=== PATIENT | female | born 1975 | race Caucasian/White ===

== ENCOUNTER 2016-11-20 09:12 | Outpatient (CLI) | payer OTHER, BC ==
[~2016-11-20] VITALS: Ht 161.3 cm; Wt 66.9 kg
[2016-11-20] MEDS ORDERED: METH36TA4 PO (09:25)
[2016-11-20 09:28] VITALS: BP 124/88
== END 2016-11-20 09:44 | disposition home or self-care (01) ==
LOC: PREOP 09:12
PROVIDERS: ATTEND Podiatrist Foot & Ankle Surgery
DX: Z01.818 Encounter for other preprocedural examination (principal); Z11.2 Encounter for screening for other bacterial diseases; M20.11 Hallux valgus (acquired), right foot; M20.41 Other hammer toe(s) (acquired), right foot; M21.621 Bunionette of right foot
CPT/HCPCS: 87081

== ENCOUNTER → 2016-11-27 | Day surgery (SDC) | payer BC, OTHER ==
--- NOTE | 2016-11-21 07:25 | History & Physicial ---
History of Present Illness History of Present Illness Reason for visit/HPI to have foot surgery by Dr. Crump. Surgeries on right toes big toe and small toe Allergic medications denies. Medications now on Concerta 36 mg 2 a day for ADHD. Surgeries partial hysterectomy left one ovary, 3 C-sections, gallbladder, T and A, polyps from nose,wisdom teeth,. Family history denies asthma, TB, diabetes, heart disease, lung disease, cancer Date of Admission patient seen 11/20/16 Time Seen by Provider: 14:00 I consulted on this patient on 11/21/16 07:20 Attending Physician Bhupendra Sue Pa-C Admitting Physician No,Local Physician Consult Allergies and Home Medications Allergies Coded Allergies: No Known Drug Allergies (Unverified , 11/20/16) Home Medications Methylphenidate HCl 36 Mg Tab.er.24, 36 MG PO DAILY, (Reported) Past Towkgzm-Xdzrzh-Ihmegm Hx Patient Social History Employed/Student: employed Seasonal Allergies Seasonal Allergies: No Surgeries HX Surgeries: Yes Surgeries: Gallbladder, Hysterectomy Respiratory Hx Respiratory Disorders: No Cardiovascular Hx Cardiovascular Disorders: No Neurological Hx Neurological Disorders: No Reproductive System : No Hx : 3 Hx Para: 3 Constitutional: no symptoms reported EENTM: no symptoms reported Respiratory: no symptoms reported Cardiovascular: no symptoms reported Gastrointestinal: no symptoms reported Genitourinary: no symptoms reported Physical Exam Vital Signs Capillary Refill : General Appearance: No Apparent Distress, WD/WN Eyes: Bilateral Eye Normal Inspection HEENT: TMs Normal, Normal ENT Inspection, Pharynx Normal Neck: Full Range of Motion, Normal Inspection, Non Tender Respiratory: Chest Non Tender, Lungs Clear, Normal Breath Sounds, No Accessory Muscle Use, No Respiratory Distress Cardiovascular: Regular Rate, Rhythm, No Edema, No Murmur Gastrointestinal: Normal Bowel Sounds, Non Tender, Soft Extremity: Normal Range of Motion Assessment/Plan Assessment and Plan surgery to big toe and small toe right foot Patient okay to have surgery Problems: ISABELA ROJAS DO Nov 21, 2016 07:25
[~2016-11-27] VITALS: Ht 161.3 cm; Wt 66.9 kg
[~2016-11-27] MED LIST: BUPIVACAINE 0.5% 30 ML (SENSORCAINE) VIAL ONE; CATHETER FLUSH 10 ML SYR IV PRN; CEPH500C PO; DEXAMETHASONE PF 10 MG/ML (DECADRON) VIAL ONE; HYDR-3812 PO; HYDROcodone/APAP 5 MG/325 MG (LORTAB) TAB PO PRN; LACTATED RINGERS 1,000 ML IV ONE; LACTATED RINGERS 1,000 ML IV SCH; LIDOCAINE 2% 20 ML (XYLOCAINE) VIAL ONE; MEPERIDINE (DEMEROL) INJ 50 MG/ML ONE; METH36TA4 PO; MIDAZOLAM 2 MG/2 ML (VERSED) VIAL ONE; NS (IVPB) 50 ML ONE; ONDANSETRON 4 MG/2 ML (SDV) Z0FRAN IVP PRN; ONDANSETRON 4 MG/2 ML (SDV) Z0FRAN ONE; SEVOFLURANE (ULTANE) 15 ML INHAL SOLN ONE; ceFAZolin 1 GM/NS 50 ML IVPB IV ONE; ceFAZolin 1,000 MG (ANCEF) VIAL ONE; fentaNYL INJECTION 100 MCG/2 ML AMP ONE; morphine INJ 10 MG/ML 1ML (SYR OR VIAL) IVP PRN; morphine INJ 10 MG/ML 1ML (SYR OR VIAL) ONE; proPOfol 200 MG/20 ML (DIPRIVAN) VIAL IV ONE
[2016-11-27] MEDS: LACTATED RINGERS 1,000 ML IV SCH ×2 (12:30→16:41)
--- NOTE | 2016-11-27 13:14 | Physical Therapy Progress Note ---
Therapy Progress Note PT in for assessment. Patient has stated she is too clumsy for crutches or a walker and prefers a knee scooter for safety with mobility. PT educated patient on use of knee scooter vs. crutches with demonstration and verbal instruction and patient continues to request a knee scooter. PT informed RN of patient preference. 1 visit YUE ELIZABETH PT Nov 27, 2016 13:14
[2016-11-27 13:34] VITALS: BP 120/83
--- NOTE | 2016-11-27 16:00 | Progress Note-Pre Operative ---
Pre-Operative Progress Note H&P Reviewed The H&P was reviewed, patient examined and no changes noted. Date Seen by Provider: Nov 27, 2016 Time Seen by Provider: 15:30 Date H&P Reviewed: Nov 27, 2016 Time H&P Reviewed: 12:30 Pre-Operative Diagnosis: Hallux Valgus, Tailor's bunion, 5th digit Hammertoe, right foot CLEOPATRA SAN DPM Nov 27, 2016 4:00 pm
--- NOTE | 2016-11-27 17:26 | Progress Note-Post Operative ---
Post-Operative Progess Note Surgeon (s)/Retail Project Merchandiser (s) Surgeon CLEOPATRA SAN DPM Retail Project Merchandiser: none Pre-Operative Diagnosis Hallux Valgus, Tailor's bunion, 5th digit Hammertoe, right foot Post-Operative Diagnosis same Procedure & Operative Findings Date of Procedure 11/27/16 Procedure Performed/Findings Neno type Bunionectomy, right Tailor's Bunionectomy, right Arthroplasty right 5th digit Anesthesia Type General Estimated Blood Loss Estimated blood loss (mL): Minimal Specimens/Packing Specimens Removed None CLEOPATRA SAN DPM Nov 27, 2016 5:26 pm
--- NOTE | 2016-11-27 18:37 | Diagnostic Imaging Report ---
EXAMINATION: Right foot dated 11/27/2016. INDICATION: Postoperative evaluation. FINDINGS: Two views of the right foot demonstrate a screw through the distal aspect of first metatarsal. Surrounding subcutaneous area is noted consistent with recent surgery. The osteotomy site is in good anatomic alignment. The remaining osseous structures demonstrate postoperative change at the fifth digit as well with an osteotomy noted. Good alignment is seen at this site as well with surrounding soft tissue irregularity consistent with recent postoperative changes. There are some lucencies seen about the distal fifth metatarsal and metatarsal head. These findings are nonspecific possibly on the basis of recent osteotomy changes as well, correlate clinically. IMPRESSION: Postoperative change involving the distal first metatarsal and the fifth digit as described. Some lucencies seen along the fifth metatarsal head which could be postoperative as well, correlate clinically. Dictated by: Dictated on workstation # [id number]
[2016-11-27 19:30] VITALS: BP 120/83
--- NOTE | 2016-11-29 10:16 | OPERATIVE REPORT ---
PROCEDURE PHYSICIAN: CLEOPATRA SAN DATE OF PROCEDURE: 11/27/2016 SURGEON: Cleopatra San DPM. PREOPERATIVE DIAGNOSIS: 1. Hallux abductovalgus, metatarsal primus varus, right. 2. Bunionette, right. 3. 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 POSTOPERATIVE DIAGNOSES: 1. Hallux abductovalgus, metatarsal primus varus, right. 2. Bunionette, right. 3. 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 PROCEDURE: 1. Modified Neno bunionectomy, right. 2. Sanam's bunionectomy, right. 3. Arthroplasty, right 5th toe. WOUND CLASS: Clean. ANESTHESIA: General. HEMOSTASIS: Pneumatic thigh tourniquet at 250 mmHg. INDICATION: This 41-year-old female presents complaining of a painful right foot. Conservative therapy is met with unsatisfactory results and the patient is agreeable to surgical intervention after risk and complications were discussed at length. No guarantees were extended to the patient and she is willing to proceed. PROCEDURE: The patient was brought back to the operating table, placed in a secure, supine position. Appropriate timeout was performed. A pneumatic thigh tourniquet was placed on lower extremity over several layers of padding and a course of general anesthetic was introduced. The right foot was then prepped and draped in normal sterile manner. Then right foot was then elevated and allowed to exsanguinate after which the tourniquet was inflated to 250 mmHg. Attention was then directed to the dorsal aspect of the right first metatarsophalangeal joint where a 6 cm longitudinal linear incision was created. The incision was deepened in the same plane with great care to identify and retract all vital neurovascular structures. Only the necessary blood vessels were cauterized as encountered. Longitudinal capsulotomy was performed. This exposed the hypertrophic medial eminence to the first metatarsal head, which was resected utilizing a power sagittal saw. Blunt dissection was carried out to the first intermetatarsal space where a lateral release was performed. The conjoined tendon of the adductor hallucis was identified and released. Lateral capsulorrhaphy was also performed, in addition to the release of the fibular sesamoidal ligament. The hallux was then forcibly abducted, releasing any additional fibers holding it in its abnormal position. Attention was redirected to the medial aspect of the first metatarsophalangeal joint where a Chevron type osteotomy was performed. Great care was taken to preserve the sesamoidal apparatus. Capital fragment was translocated laterally and fixated in its corrected position utilizing a 0.062 threaded K wire driven from proximal dorsal to plantar distal across the osteotomy. Excellent bony apposition and fixation was appreciated at this time. The K wire was cut flush with the dorsal aspect of the first metatarsal. The head was further contoured and smoothed with a power sagittal saw and power bur. The wound was flushed with copious amounts of normal saline and closure was then performed in layers. Deep closure was performed in both 3-0 Vicryl, superficial with 4-0 Vicryl, skin closure with 4-0 Vicryl Prolene in a horizontal mattress type stitch. Excellent range of motion was appreciated to the right first metatarsophalangeal joint with excellent alignment noted at this time. Attention was then directed to the right 5th metatarsal. The lateral eminence was identified to the 5th metatarsal head. A 3 cm longitudinal linear incision was created over the metatarsophalangeal joint, deepened in the same plane down to the capsule where a longitude capsulotomy was performed. This exposed the lateral eminence to the 5th metatarsal head. Utilizing the power sagittal saw, followed by power alexandrea, the lateral eminence of the 5th metatarsal was reduced. The area was then smoothed. Was then flushed with copious amounts of normal saline and closure was then performed in layers. Deep closure was performed with 4-0 Vicryl, superficial with 4-0 Vicryl, skin closure with 4-0 Prolene in a horizontal mattress type stitch. Attention was then directed to the right 5th toe where adductus varus rotation was identified and edema noted to the digit. Two semielliptical incisions from proximal lateral to distal medial were created. The circumscribed skin was removed in toto. The incision was deepened down to the extensor tendon where a transverse tenotomy was performed as well as release of the mediolateral collateral ligaments. This exposed the hypertrophic head of the proximal phalanx which was resected utilizing a power sagittal saw. The wound was flushed with copious amounts of normal saline and closure was then performed in layers. Deep closure was performed with 4-0 Vicryl, superficial with 4-0 Vicryl, skin closure with 4-0 Prolene in a horizontal mattress type stitch. Postoperative injection consisted of 19 mL of 0.5% Marcaine plain injected into the surgical sites. Postoperative dressing consisted of Betadine soaked Adaptic, sterile 4 x 4, sterile Kerlix, all secured with a Coban wrap. The patient tolerated the anesthesia and procedure well and was transported from the operating room to the recovery area with vital signs stable and vascular status intact to all digits of the right foot. The patient is to follow-up in my office in 10 days period of time or sooner if necessary. She was given a prescription for Keflex and Vicodin. She was also instructed to discontinued tobacco use preoperatively and she understands that if she not stop tobacco use, bone healing can be effected. Job ID: [id number] Dictated Date: 11/27/2016 17:36:54 Mortgage Loan Specialist Date: 11/29/2016 09:55:12 / maira MAURICE
--- OUTSIDE RECORDS SUMMARY | 2016-12-01 09:50 | XMS REPORT | CCD ---
Author Author AYAAN LOCO Unknown Address [address] [place] [address] Care Team Providers Care Senior Analytical Chemist Name Role Phone FOXBORO ER, STEPHANIE DO Attphys FOXBORO ER, STEPHANIE DO Prisurg Allergies Allergy Code Allergy Type Reaction Status Unknown Code - 0 0 Propensity to adverse reactions Active TEQUIN {Clinical monitoring unavailable} 0 Drug allergy Active Active Medications Medication Code Dose Units Frequency Route Modification Start Date/Time APAP/Hydrocodone Bitartrate 325MG-10MG Oral Tablet 745128 1 TABLET NEEDED EVERY 4 HR BY MOUTH 2013 13:37 Prescription Detail 1 TABLET BY MOUTH NEEDED EVERY 4 HR Dextroamphetamine Sulfate 15MG Oral Capsule, Extended Release 089103 2 CAP DAILY ORAL 06/25/2013 13:37 Prescription Detail 2 CAP ORAL DAILY Dextroamphetamine Sulfate 15MG Oral Capsule, Extended Release 253374 15 MILLIGRAMS 1 CAP 8 HRS AFTER THE AM DOSE ORAL 06/25/2013 13:37 Prescription Detail 15 MILLIGRAMS ORAL 1 CAP 8 HRS AFTER THE AM DOSE Milk Of Magnesia 400MG/5ML Oral Suspension 895499 30 MILLILITERS NEEDED BY MOUTH 06/25/2013 13:37 Prescription Detail 30 MILLILITERS BY MOUTH NEEDED Problems Problem Code Start Date Resolved Date Status Acalculous cholecystitis 57405001 06/23/2013 Active Post surgical pain 454472983 06/24/2013 Active Procedures Procedure Code Procedure Type Date FOOT [address] 03/06/2016 CT CERVICAL W/O CONTRAST 148232279 SNOMED CT 03/06/2016 Results Unknown or Not Available. Encounters Encounter Diagnosis Diagnosis Code Start Date Neck sprain 470441758 03/06/2016 Function Status Unknown or Not Available. History of Immunizations Unknown or Not Available. Plan of Treatment Unknown or Not Available. Social History Smoking Status Code Start Date End Date Current every day smoker 351208210 Vital Signs Unknown or Not Available. Function Status Unknown or Not Available. Goals Unknown or Not Available. ASSESSMENTS Unknown or Not Available. Health Concerns Section Unknown or Not Available.
--- OUTSIDE RECORDS SUMMARY | 2016-12-01 09:50 | XMS REPORT | Continuity of Care Document ---
Author Author [facility] Address Unknown Phone Unavailable Allergies Medications Problems Procedures Results Encounters ACCT No. Visit Date/Time Discharge Status Pt. Type Provider Facility Loc./Unit Complaint [id number] 01/05/2014 12:26:01 01/05/2014 23: 59:59 [facility] Outpatient Jarod Brooks [id number] 07/15/2013 18:02:12 07/15/2013 23: 59:59 [facility] Outpatient Jarod Brooks [id number] 07/01/2013 11:22:18 07/01/2013 23: 59:59 [facility] Outpatient Deonte Perez [id number] 06/28/2013 09:28:53 06/28/2013 23: 59:59 [facility] Outpatient Deonte Perez [id number] 06/22/2013 09:48:26 06/22/2013 23: 59:59 [facility] Outpatient Deonte Perez
== END | disposition home or self-care (01) ==
LOC: SDC 12:21
PROVIDERS: ATTEND Podiatrist Foot & Ankle Surgery
DX: M20.11 Hallux valgus (acquired), right foot (principal); M20.41 Other hammer toe(s) (acquired), right foot; M21.621 Bunionette of right foot; F90.9 Attention-deficit hyperactivity disorder, unspecified type; Z79.899 Other long term (current) drug therapy
CPT/HCPCS: 73620